=== PATIENT | male | born 1975 | race Caucasian/White ===

== ENCOUNTER 2018-08-29 10:43 | Emergency (ER) | payer MEDICAID, OTHER, SELFPAY ==
[~2018-08-29] VITALS: Ht 182.9 cm; Wt 69.2 kg
[2018-08-29 10:44] VITALS: BP 152/88
[2018-08-29 11:56] LABS: BASOPHILS # (AUTO) 0.01 x10^3/uL (0-0.1); BASOPHILS % (AUTO) 0 % (0-1); EOSINOPHILS # (AUTO) 0.02 x10^3/uL (0-0.4); EOSINOPHILS % (AUTO) 0 % (1-7); LYMPHOCYTES # (AUTO) 0.37 x10^3/uL (1-3.4); LYMPHOCYTES % (AUTO) 5 % (22-44); MD NO; MEAN CORPUSCULAR HGB CONC 33.3 g/dL (33.2-36.2); MEAN CORPUSCULAR VOLUME 86.9 fL (81-97); MEAN PLATELET VOLUME 8.9 fL (7.4-10.4); MONOCYTES # (AUTO) 0.32 x10^3/uL (0.2-0.8); MONOCYTES % (AUTO) 4 % (2-9); NEUTROPHILS # (AUTO) 7.43 x10^3/uL (1.8-6.8); NEUTROPHILS % (AUTO) 91 % (42-75); PLATELET COUNT 313 x10^3/uL (130-400); RED BLOOD COUNT 5.33 x10^6/uL (4.38-5.82); RED CELL DISTRIBUTION WIDTH 16.4 % (9.4-14.8)
[2018-08-29 12:03] LABS: ALBUMIN 4.2 g/dL (3.4-5.0); ANION GAP 5 mmol/L (5-15); CHLORIDE 107 mmol/L (98-107)
[2018-08-29 12:07] LABS: ALANINE AMINOTRANSFERASE 31 U/L (12-78); ALKALINE PHOSPHATASE 76 U/L (45-117); BILIRUBIN,TOTAL 0.3 mg/dL (0.2-1.0); CREATININE 0.86 mg/dL (0.7-1.3); TOTAL PROTEIN 7.9 g/dL (6.4-8.2)
--- NOTE | 2018-08-29 12:47 | NUR ---
TO ROOM 27
[2018-08-29] MEDS ORDERED: ONDANSETRON ODT 4 MG PO ONE (13:30)
[2018-08-29 13:46] LABS: MICROSCOPIC AUTO
[2018-08-29 13:55] LABS: CULTURE INDICATED? NO
[2018-08-29] MEDS ORDERED: ONDANSETRON ODT 4 MG ONE (14:02)
== END 2018-08-29 14:08 | disposition home or self-care (01) ==
LOC: ED 13:19
DX: K52.9 Noninfective gastroenteritis and colitis, unspecified (principal); K50.90 Crohn's disease, unspecified, without complications; R05 Cough
CPT/HCPCS: 36415; 80053; 81001; 83690; 85025; 99283; Q0162

== ENCOUNTER 2018-09-19 23:00 | Emergency (ER) | payer SELFPAY ==
[~2018-09-19] VITALS: Ht 182.9 cm; Wt 68.0 kg
[2018-09-19 23:04] VITALS: BP 180/90
[2018-09-19] MEDS ORDERED: OXYcodone/APAP 5/325MG TABLET ONE (23:58)
[2018-09-20] MEDS ORDERED: OXYcodone/APAP 5/325MG TABLET PO ONE (00:30)
== END 2018-09-20 00:37 | disposition home or self-care (01) ==
LOC: ED 23:59
DX: S42.431A Displaced fracture (avulsion) of lateral epicondyle of right humerus, initial encounter for closed fracture (principal); F17.210 Nicotine dependence, cigarettes, uncomplicated; W22.03XA Walked into furniture, initial encounter; Y93.89 Activity, other specified; Y92.098 Other place in other non-institutional residence as the place of occurrence of the external cause; Y99.8 Other external cause status
CPT/HCPCS: 29105; 99283

== ENCOUNTER 2019-09-09 09:23 | Emergency (ER) | payer SELFPAY ==
[~2019-09-09] VITALS: Ht 182.9 cm; Wt 77.8 kg
[2019-09-09 09:59] VITALS: BP 139/108
== END 2019-09-09 14:31 | disposition left against medical advice (07) ==
LOC: ED 14:20
DX: R51 Headache (principal); R11.10 Vomiting, unspecified
CPT/HCPCS: 99281

== ENCOUNTER 2019-12-12 14:31 | Emergency (ER) | payer MEDICAID ==
[~2019-12-12] VITALS: Ht 182.9 cm; Wt 76.4 kg
[2019-12-12] MEDS ORDERED: SODIUM CHLORIDE FLUSH 10ML SYR IVF ONE (15:30)
[2019-12-12 16:06] LABS: BASOPHILS # (AUTO) 0.01 x10^3/uL (0-0.1); BASOPHILS % (AUTO) 0 % (0-1); EOSINOPHILS # (AUTO) 0.04 x10^3/uL (0-0.4); EOSINOPHILS % (AUTO) 1 % (1-7); LYMPHOCYTES # (AUTO) 1.24 x10^3/uL (1-3.4); LYMPHOCYTES % (AUTO) 18 % (22-44); MD NO; MEAN CORPUSCULAR HEMOGLOBIN 28.2 pg (27.5-34.5); MEAN CORPUSCULAR HGB CONC 32.5 g/dL (33.2-36.2); MEAN CORPUSCULAR VOLUME 86.9 fL (81-97); MEAN PLATELET VOLUME 9.3 fL (7.4-10.4); MONOCYTES # (AUTO) 0.23 x10^3/uL (0.2-0.8); MONOCYTES % (AUTO) 3 % (2-9); NEUTROPHILS # (AUTO) 5.46 x10^3/uL (1.8-6.8); NEUTROPHILS % (AUTO) 78 % (42-75); PLATELET COUNT 237 x10^3/uL (130-400); RED BLOOD COUNT 5.12 x10^6/uL (4.38-5.82); RED CELL DISTRIBUTION WIDTH 15.9 % (9.4-14.8)
[2019-12-12 16:13] LABS: ALANINE AMINOTRANSFERASE 47 U/L (12-78); ALBUMIN 3.8 g/dL (3.4-5.0); ANION GAP 7 mmol/L (5-15); CALCIUM 8.9 mg/dL (8.5-10.1); CHLORIDE 109 mmol/L (98-107); CREATININE 0.83 mg/dL (0.7-1.3)
[2019-12-12 16:16] LABS: ALKALINE PHOSPHATASE 64 U/L (45-117); BILIRUBIN,TOTAL 0.2 mg/dL (0.2-1.0); TOTAL PROTEIN 7.6 g/dL (6.4-8.2)
[2019-12-12 16:35] VITALS: BP 129/88
--- NOTE | 2019-12-12 16:38 | NUR ---
re-vital'd - vss reports flank pain worsening-lab intern made aware
--- NOTE | 2019-12-12 16:52 | NUR ---
NOT IN LOBBY. LOBBY SCREENER REPORTS PATIENT RECENTLY RAN INTO THE PARKING LOT TO DEAL WITH A SOCIAL SITUATION
--- NOTE | 2019-12-12 17:20 | NUR ---
NO ANSWER FROM LOBBY
== END 2019-12-12 17:22 | disposition left against medical advice (07) ==
LOC: ED 17:11
DX: R10.9 Unspecified abdominal pain (principal); R31.9 Hematuria, unspecified
CPT/HCPCS: 36415; 74176; 80053; 85025; 99284

== ENCOUNTER 2020-01-13 09:29 | Emergency (ER) | payer MEDICAID ==
[~2020-01-13] VITALS: Ht 180.3 cm; Wt 79.2 kg
--- NOTE | 2020-01-13 09:59 | NUR ---
TOWEL SORTER: PT WALKED BACK FROM LOBBY TO ROOM AT THIS TIME. NO ACUTE DISTRESS NOTED.
--- NOTE | 2020-01-13 10:02 | NUR ---
TASK RN: PT AMBULATORY TO ROOM FROM [facility]. PT STATES HE SPRAINED HIS LEFT WRIST YESTERDAY LIFTING [employer]. NOT GOING TO WORK TODAY AND NEEDS WORK NOTE AND WANTS A BRACE FOR HIS WRIST. DISTAL CSM+, PAIN WITH WRIST ROTATION
[2020-01-13 10:05] VITALS: BP 144/102
--- NOTE | 2020-01-13 10:05 | NUR ---
CALL LIGHT W/I REACH
[2020-01-13] MEDS ORDERED: IBUPROFEN 600 MG TABLET PO ONE (10:30)
== END 2020-01-13 11:39 | disposition home or self-care (01) ==
LOC: ED 11:24
DX: G89.11 Acute pain due to trauma (principal); M25.532 Pain in left wrist; M77.9 Enthesopathy, unspecified
CPT/HCPCS: 29125; 99283

== ENCOUNTER 2020-01-23 09:27 | Emergency (ER) | payer MEDICAID ==
[~2020-01-23] VITALS: Ht 182.9 cm; Wt 76.0 kg
[2020-01-23 09:32] VITALS: BP 191/88
--- NOTE | 2020-01-23 10:16 | NUR ---
CONTROL SYSTEMS ENGINEER: PT TO ROOM FROM LOBBY
[2020-01-23] MEDS ORDERED: ONDANSETRON ODT 4 MG PO ONE (10:30)
[2020-01-23] MEDS ORDERED: ONDANSETRON ODT 4 MG ONE (10:41)
[2020-01-23 11:06] LABS: BASOPHILS % (AUTO) 0 % (0-1); EOSINOPHILS % (AUTO) 0 % (1-7); LYMPHOCYTES # (AUTO) 1.19 x10^3/uL (1-3.4); LYMPHOCYTES % (AUTO) 13 % (22-44); MD NO; MEAN CORPUSCULAR HEMOGLOBIN 27.9 pg (27.5-34.5); MEAN CORPUSCULAR HGB CONC 33.2 g/dL (33.2-36.2); MEAN CORPUSCULAR VOLUME 84.1 fL (81-97); MEAN PLATELET VOLUME 8.1 fL (7.4-10.4); MONOCYTES # (AUTO) 0.78 x10^3/uL (0.2-0.8); MONOCYTES % (AUTO) 9 % (2-9); NEUTROPHILS # (AUTO) 6.95 x10^3/uL (1.8-6.8); NEUTROPHILS % (AUTO) 78 % (42-75); PLATELET COUNT 306 x10^3/uL (130-400); RED CELL DISTRIBUTION WIDTH 16.8 % (9.4-14.8)
[2020-01-23 11:19] LABS: CHLORIDE 109 mmol/L (98-107)
[2020-01-23 11:35] LABS: ALANINE AMINOTRANSFERASE 143 U/L (12-78); ALBUMIN 4.6 g/dL (3.4-5.0); ALKALINE PHOSPHATASE 59 U/L (45-117); ANION GAP 9 mmol/L (5-15); CALCIUM 9.3 mg/dL (8.5-10.1); CREATININE 0.86 mg/dL (0.7-1.3); TOTAL PROTEIN 8.1 g/dL (6.4-8.2)
== END 2020-01-23 12:13 | disposition home or self-care (01) ==
LOC: ED 11:29
DX: R06.00 Dyspnea, unspecified (principal); Z20.828 Contact with and (suspected) exposure to other viral communicable diseases; R06.02 Shortness of breath; R11.2 Nausea with vomiting, unspecified; M79.10 Myalgia, unspecified site; R73.09 Other abnormal glucose; Z87.891 Personal history of nicotine dependence
CPT/HCPCS: 36415; 71045; 80053; 80074; 85025; 87521; 87635; 93005; 99285; Q0162

== ENCOUNTER 2020-01-30 09:01 | Emergency (ER) | payer MEDICAID ==
[~2020-01-30] VITALS: Ht 177.8 cm; Wt 80.0 kg
[2020-01-30 09:09] VITALS: BP 160/100
--- NOTE | 2020-01-30 11:04 | NUR ---
Patient/Caregiver given discharge instructions and they have confirmed that they understand the instructions. Patient ambulatory with steady gait.
== END 2020-01-30 11:06 | disposition home or self-care (01) ==
LOC: ED 09:27
DX: F15.10 Other stimulant abuse, uncomplicated (principal); F22 Delusional disorders
CPT/HCPCS: 99283

== ENCOUNTER 2020-03-13 02:21 | Inpatient (IN) | payer MEDICAID ==
[~2020-03-13] VITALS: Ht 182.9 cm; Wt 71.0 kg
[2020-03-13] MEDS ORDERED: CEFTRIAXONE PMX 1GM/50ML 50 ML ONE (02:48)
[2020-03-13] MEDS ORDERED: VANCOMYCIN PER PHARMACY MC ONE (03:00)
[2020-03-13] MEDS ORDERED: CEFTRIAXONE PMX 1GM/50ML 50 ML IVPB ONE (03:00)
[2020-03-13] MEDS ORDERED: MORPHINE SULFATE 4 MG/ML, 1ML ONE (03:11)
[2020-03-13] MEDS ORDERED: ONDANSETRON 2MG/ML, 2ML ONE (03:11)
[2020-03-13] MEDS: MORPHINE SULFATE 4 MG/ML, 1ML IVPush PRN ×2 (03:15→04:34)
[2020-03-13 03:24] LABS: BASOPHILS # (AUTO) 0.01 x10^3/uL (0-0.1); BASOPHILS % (AUTO) 0 % (0-1); EOSINOPHILS # (AUTO) 0.03 x10^3/uL (0-0.4); EOSINOPHILS % (AUTO) 0 % (1-7); LYMPHOCYTES # (AUTO) 1.02 x10^3/uL (1-3.4); LYMPHOCYTES % (AUTO) 7 % (22-44); MD NO; MEAN CORPUSCULAR HEMOGLOBIN 28.5 pg (27.5-34.5); MEAN CORPUSCULAR HGB CONC 32.6 g/dL (33.2-36.2); MEAN CORPUSCULAR VOLUME 87.4 fL (81-97); MEAN PLATELET VOLUME 8.1 fL (7.4-10.4); MONOCYTES # (AUTO) 0.62 x10^3/uL (0.2-0.8); MONOCYTES % (AUTO) 5 % (2-9); NEUTROPHILS # (AUTO) 12.04 x10^3/uL (1.8-6.8); NEUTROPHILS % (AUTO) 88 % (42-75); PLATELET COUNT 342 x10^3/uL (130-400); RED CELL DISTRIBUTION WIDTH 16.9 % (9.4-14.8)
[2020-03-13 03:30] LABS: ALANINE AMINOTRANSFERASE 52 U/L (12-78); ALBUMIN 3.1 g/dL (3.4-5.0); ANION GAP 4 mmol/L (5-15); CHLORIDE 105 mmol/L (98-107); CREATININE 0.66 mg/dL (0.7-1.3)
[2020-03-13] MEDS ORDERED: VANCOMYCIN 1,600 MG in SODIUM CHLORIDE 0.9% 250 ML IV ONE (03:30)
[2020-03-13] MEDS ORDERED: ONDANSETRON 2MG/ML, 2ML IVPush ONE (03:30)
[2020-03-13 03:32] LABS: ALKALINE PHOSPHATASE 76 U/L (45-117); BILIRUBIN,TOTAL 0.4 mg/dL (0.2-1.0); TOTAL PROTEIN 6.7 g/dL (6.4-8.2)
--- NOTE | 2020-03-13 03:45 | NUR ---
PT YELLING OUT, UPON ENTERING ROOM PT YELLING THAT HE "HAS PRESSURE IN HIS STOMACH", PT RIPS OFF MONITORS AND STATES "I HAVE TO STAND UP", PT ASSISTED TO RESTROOM, PT STATES "I NEED TO SIT ON THE TOILET". PT IN RESTROOM CONTINUING TO YELL OUT. DR LUNA MADE AWARE
[2020-03-13] MEDS ORDERED: SODIUM CHLORIDE 0.9% 1,000 ML IV SCH (03:57)
[2020-03-13] MEDS ORDERED: hydrALAzine 20 MG/ML, 1ML IVPush PRN (04:00)
[2020-03-13] MEDS ORDERED: ZIPRASIDONE 20 MG INJ IM ONE ×2 (04:00→04:01)
[2020-03-13] MEDS ORDERED: ONDANSETRON 2MG/ML, 2ML IVPush PRN ×2 (04:00)
[2020-03-13] MEDS ORDERED: DOCUSATE 100 MG CAPSULE PO PRN (04:00)
[2020-03-13] MEDS ORDERED: KETOROLAC 30 MG/1 ML IVPush ONE (04:00)
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
[2020-03-13] MEDS: HEPARIN 5,000 UNITS/ML, 1ML SQ SCH ×3 (04:22→22:23)
--- NOTE | 2020-03-13 04:30 | NUR ---
Pt now asleep following medication administration, vss, will continue to monitor
[2020-03-13] MEDS ORDERED: KETOROLAC 30 MG/1 ML ONE (04:38)
[2020-03-13] MEDS: AMPICILLIN/SULBACTAM 3 GM in SODIUM CHLORIDE 0.9% 100 ML IV SCH ×3 (05:30→20:17)
--- NOTE | 2020-03-13 06:38 | NUR ---
Pt asleep, appears comfortable resting in [facility] at this time, srinivas, lety
--- NOTE | 2020-03-13 06:51 | NUR ---
TOOK REPORT FROM CHAS PEDROZA RN, [facility] AT THIS TIME. PT CALM SLEEPING IN BED , RR EVEN AND UNLABORED. MATTIE SITTER OUTSIDE ROOM. ROOM IS SAFE AND SECURE.
[2020-03-13] MEDS ORDERED: DOXYCYCLINE 100MG TABLET ONE (08:22)
--- NOTE | 2020-03-13 08:50 | NUR ---
Note undone in EDM - 03/13/20 at 0851 by VICTORINA PT COMPLAINING OF STOMACH DISCOMOFRT AND NAUSEA. MEDICATED PER AUG.
[2020-03-13] MEDS: DOXYCYCLINE 100MG TABLET PO SCH ×2 (09:21→22:22)
--- NOTE | 2020-03-13 09:33 | NUR ---
urine sent to lab
[2020-03-13 10:09] LABS: AMPHETAMINE SCREEN, URINE Positive (Negative); BARBITURATE SCREEN, URINE Negative (Negative); BENZODIAZEPINE SCREEN, URINE Negative (Negative); CANNABINOID SCREEN, URINE Positive (Negative); COCAINE SCREEN, URINE Negative (Negative); METHADONE SCREEN, URINE Negative (Negative); OPIATE SCREEN, URINE Positive (Negative)
[2020-03-13 14:45] VITALS: BP 151/95
[2020-03-13] MEDS ORDERED: MORPHINE SULFATE 4 MG/ML, 1ML IVPush PRN (17:00)
[2020-03-13 19:09] VITALS: BP 135/92
[2020-03-14 00:49] VITALS: BP 154/104
[2020-03-14] MEDS: AMPICILLIN/SULBACTAM 3 GM in SODIUM CHLORIDE 0.9% 100 ML IV SCH ×4 (02:08→21:19)
[2020-03-14] MEDS: HEPARIN 5,000 UNITS/ML, 1ML SQ SCH ×3 (04:50→22:36)
[2020-03-14 06:04] LABS: ANION GAP 6 mmol/L (5-15); CALCIUM 8.8 mg/dL (8.5-10.1); CHLORIDE 107 mmol/L (98-107); CREATININE 0.62 mg/dL (0.7-1.3); HCT (SEDRATE) 41.1 % (39.2-51.8)
[2020-03-14 06:14] LABS: BASOPHILS # (AUTO) 0.04 x10^3/uL (0-0.1); BASOPHILS % (AUTO) 0 % (0-1); EOSINOPHILS # (AUTO) 0.04 x10^3/uL (0-0.4); EOSINOPHILS % (AUTO) 1 % (1-7); LYMPHOCYTES # (AUTO) 1.05 x10^3/uL (1-3.4); LYMPHOCYTES % (AUTO) 12 % (22-44); MD NO; MEAN CORPUSCULAR HEMOGLOBIN 28.5 pg (27.5-34.5); MEAN CORPUSCULAR HGB CONC 32.3 g/dL (33.2-36.2); MEAN CORPUSCULAR VOLUME 88.2 fL (81-97); MEAN PLATELET VOLUME 7.8 fL (7.4-10.4); MONOCYTES # (AUTO) 0.78 x10^3/uL (0.2-0.8); MONOCYTES % (AUTO) 9 % (2-9); NEUTROPHILS # (AUTO) 7.06 x10^3/uL (1.8-6.8); NEUTROPHILS % (AUTO) 79 % (42-75); PLATELET COUNT 315 x10^3/uL (130-400); RED BLOOD COUNT 4.65 x10^6/uL (4.38-5.82); RED CELL DISTRIBUTION WIDTH 17.3 % (9.4-14.8)
[2020-03-14] MEDS: DOXYCYCLINE 100MG TABLET PO SCH ×2 (08:17→21:18)
[2020-03-14] MEDS: NICOTINE 14MG/24 HR PATCH.TD24 TD SCH (08:17)
[2020-03-14 08:27] VITALS: BP 137/92
[2020-03-14 12:32] VITALS: BP 142/89
[2020-03-14] MEDS ORDERED: VANCOMYCIN PER PHARMACY MC PRN (13:00)
[2020-03-14] MEDS ORDERED: PHARMACOKINETIC MONITORING MC PRN (13:30)
[2020-03-14] MEDS ORDERED: PHARMACOKINETIC CONSULTATION MC ONE (13:30)
[2020-03-14] MEDS: OXYcodone IR 5MG TABLET PO PRN ×2 (15:33→21:18)
[2020-03-14] MEDS: VANCOMYCIN 1,300 MG in SODIUM CHLORIDE 0.9% 250 ML IV SCH (16:51)
[2020-03-14 20:34] VITALS: BP 147/92
[2020-03-15 00:53] VITALS: BP 131/80
[2020-03-15] MEDS: AMPICILLIN/SULBACTAM 3 GM in SODIUM CHLORIDE 0.9% 100 ML IV SCH ×4 (03:37→21:45)
[2020-03-15] MEDS: OXYcodone IR 5MG TABLET PO PRN ×5 (04:56→22:40)
[2020-03-15] MEDS: VANCOMYCIN 1,300 MG in SODIUM CHLORIDE 0.9% 250 ML IV SCH (04:56)
[2020-03-15] MEDS: HEPARIN 5,000 UNITS/ML, 1ML SQ SCH ×3 (06:14→21:45)
[2020-03-15 06:37] LABS: BASOPHILS # (AUTO) 0.04 x10^3/uL (0-0.1); BASOPHILS % (AUTO) 1 % (0-1); EOSINOPHILS # (AUTO) 0.11 x10^3/uL (0-0.4); EOSINOPHILS % (AUTO) 1 % (1-7); LYMPHOCYTES # (AUTO) 1.13 x10^3/uL (1-3.4); LYMPHOCYTES % (AUTO) 15 % (22-44); MD NO; MEAN CORPUSCULAR HEMOGLOBIN 28.4 pg (27.5-34.5); MEAN CORPUSCULAR HGB CONC 32.1 g/dL (33.2-36.2); MEAN CORPUSCULAR VOLUME 88.4 fL (81-97); MEAN PLATELET VOLUME 7.6 fL (7.4-10.4); MONOCYTES # (AUTO) 0.78 x10^3/uL (0.2-0.8); MONOCYTES % (AUTO) 10 % (2-9); NEUTROPHILS # (AUTO) 5.41 x10^3/uL (1.8-6.8); NEUTROPHILS % (AUTO) 73 % (42-75); PLATELET COUNT 366 x10^3/uL (130-400); RED BLOOD COUNT 4.95 x10^6/uL (4.38-5.82); RED CELL DISTRIBUTION WIDTH 17.3 % (9.4-14.8)
[2020-03-15 07:08] VITALS: BP 133/80
[2020-03-15] MEDS: NICOTINE 14MG/24 HR PATCH.TD24 TD SCH (07:08)
[2020-03-15] MEDS: DOXYCYCLINE 100MG TABLET PO SCH (08:16)
[2020-03-15 14:58] VITALS: BP 155/75
[2020-03-15 19:43] VITALS: BP 144/90
[2020-03-16 03:14] VITALS: BP 135/78
[2020-03-16] MEDS: OXYcodone IR 5MG TABLET PO PRN ×5 (03:14→20:09)
[2020-03-16] MEDS: AMPICILLIN/SULBACTAM 3 GM in SODIUM CHLORIDE 0.9% 100 ML IV SCH ×4 (03:14→21:36)
[2020-03-16] MEDS: HEPARIN 5,000 UNITS/ML, 1ML SQ SCH ×2 (06:30→15:50)
[2020-03-16] MEDS: NICOTINE 14MG/24 HR PATCH.TD24 TD SCH (07:21)
[2020-03-16 07:26] VITALS: BP 155/94
[2020-03-16 13:03] VITALS: BP 145/93
[2020-03-16 19:25] VITALS: BP 142/91
[2020-03-16] MEDS: ACETAMINOPHEN 325 MG TABLET PO PRN (20:08)
[2020-03-17] MEDS: ACETAMINOPHEN 325 MG TABLET PO PRN ×2 (00:02→04:06)
[2020-03-17] MEDS: OXYcodone IR 5MG TABLET PO PRN ×3 (00:04→09:07)
[2020-03-17] MEDS: HEPARIN 5,000 UNITS/ML, 1ML SQ SCH ×4 (00:05→22:49)
[2020-03-17 01:26] VITALS: BP 136/89
[2020-03-17] MEDS: AMPICILLIN/SULBACTAM 3 GM in SODIUM CHLORIDE 0.9% 100 ML IV SCH ×4 (04:06→22:46)
[2020-03-17 05:53] LABS: BASOPHILS # (AUTO) 0.02 x10^3/uL (0-0.1); BASOPHILS % (AUTO) 0 % (0-1); EOSINOPHILS # (AUTO) 0.15 x10^3/uL (0-0.4); EOSINOPHILS % (AUTO) 3 % (1-7); LYMPHOCYTES # (AUTO) 1.41 x10^3/uL (1-3.4); LYMPHOCYTES % (AUTO) 29 % (22-44); MD NO; MEAN CORPUSCULAR HEMOGLOBIN 28.6 pg (27.5-34.5); MEAN CORPUSCULAR HGB CONC 32.3 g/dL (33.2-36.2); MEAN CORPUSCULAR VOLUME 88.7 fL (81-97); MEAN PLATELET VOLUME 7.5 fL (7.4-10.4); MONOCYTES # (AUTO) 0.62 x10^3/uL (0.2-0.8); MONOCYTES % (AUTO) 13 % (2-9); NEUTROPHILS # (AUTO) 2.64 x10^3/uL (1.8-6.8); NEUTROPHILS % (AUTO) 55 % (42-75); PLATELET COUNT 425 x10^3/uL (130-400); RED BLOOD COUNT 4.61 x10^6/uL (4.38-5.82); RED CELL DISTRIBUTION WIDTH 17.7 % (9.4-14.8)
[2020-03-17 05:56] LABS: ANION GAP 5 mmol/L (5-15); CALCIUM 8.8 mg/dL (8.5-10.1); CHLORIDE 104 mmol/L (98-107); CREATININE 0.74 mg/dL (0.7-1.3)
[2020-03-17 07:01] VITALS: BP 116/59
[2020-03-17 08:19] VITALS: BP 173/102
[2020-03-17] MEDS: NICOTINE 14MG/24 HR PATCH.TD24 TD SCH (08:33)
[2020-03-17 12:55] VITALS: BP 169/98
[2020-03-17] MEDS ORDERED: IBUPROFEN 600 MG TABLET ONE (17:05)
[2020-03-17 20:03] VITALS: BP 153/101
[2020-03-18 01:44] VITALS: BP 144/103
[2020-03-18] MEDS: IBUPROFEN 600 MG TABLET PO PRN ×3 (02:14→15:47)
[2020-03-18] MEDS: AMPICILLIN/SULBACTAM 3 GM in SODIUM CHLORIDE 0.9% 100 ML IV SCH ×4 (04:27→21:20)
[2020-03-18] MEDS: ACETAMINOPHEN 325 MG TABLET PO PRN ×3 (05:22→19:09)
[2020-03-18] MEDS: OXYcodone IR 5MG TABLET PO PRN ×3 (05:23→19:09)
[2020-03-18 06:52] VITALS: BP 163/88
[2020-03-18] MEDS: HEPARIN 5,000 UNITS/ML, 1ML SQ SCH ×3 (08:37→23:30)
[2020-03-18 08:38] LABS: BASOPHILS # (AUTO) 0.02 x10^3/uL (0-0.1); BASOPHILS % (AUTO) 0 % (0-1); EOSINOPHILS # (AUTO) 0.05 x10^3/uL (0-0.4); EOSINOPHILS % (AUTO) 1 % (1-7); LYMPHOCYTES # (AUTO) 1.06 x10^3/uL (1-3.4); LYMPHOCYTES % (AUTO) 21 % (22-44); MD NO; MEAN CORPUSCULAR HEMOGLOBIN 28.2 pg (27.5-34.5); MEAN CORPUSCULAR HGB CONC 31.8 g/dL (33.2-36.2); MEAN CORPUSCULAR VOLUME 88.9 fL (81-97); MEAN PLATELET VOLUME 7.6 fL (7.4-10.4); MONOCYTES # (AUTO) 0.37 x10^3/uL (0.2-0.8); MONOCYTES % (AUTO) 7 % (2-9); NEUTROPHILS # (AUTO) 3.46 x10^3/uL (1.8-6.8); NEUTROPHILS % (AUTO) 70 % (42-75); PLATELET COUNT 389 x10^3/uL (130-400); RED BLOOD COUNT 5.27 x10^6/uL (4.38-5.82); RED CELL DISTRIBUTION WIDTH 17.7 % (9.4-14.8)
[2020-03-18 08:46] LABS: ANION GAP 6 mmol/L (5-15); CALCIUM 8.7 mg/dL (8.5-10.1); CHLORIDE 105 mmol/L (98-107)
[2020-03-18 08:51] LABS: ALANINE AMINOTRANSFERASE 79 U/L (12-78); ALKALINE PHOSPHATASE 115 U/L (45-117); BILIRUBIN,TOTAL 0.2 mg/dL (0.2-1.0); TOTAL PROTEIN 7.4 g/dL (6.4-8.2)
[2020-03-18] MEDS: NICOTINE 14MG/24 HR PATCH.TD24 TD SCH (09:14)
[2020-03-18 14:02] VITALS: BP 153/73
[2020-03-18 20:11] VITALS: BP 169/87
[2020-03-19] MEDS: OXYcodone IR 5MG TABLET PO PRN ×4 (00:33→20:53)
[2020-03-19 02:17] VITALS: BP 162/98
[2020-03-19] MEDS: AMPICILLIN/SULBACTAM 3 GM in SODIUM CHLORIDE 0.9% 100 ML IV SCH ×4 (03:30→22:51)
[2020-03-19 07:33] VITALS: BP 171/101
[2020-03-19] MEDS: ACETAMINOPHEN 325 MG TABLET PO PRN ×3 (08:14→20:53)
[2020-03-19] MEDS: HEPARIN 5,000 UNITS/ML, 1ML SQ SCH ×2 (08:15→17:15)
[2020-03-19] MEDS: NICOTINE 14MG/24 HR PATCH.TD24 TD SCH (09:00)
[2020-03-19] MEDS: IBUPROFEN 600 MG TABLET PO PRN ×2 (09:42→17:15)
[2020-03-19 13:31] VITALS: BP 147/95
[2020-03-19 18:30] VITALS: BP 156/85
[2020-03-20] MEDS: HEPARIN 5,000 UNITS/ML, 1ML SQ SCH ×2 (01:00→09:34)
[2020-03-20 02:46] VITALS: BP 143/86
[2020-03-20] MEDS: OXYcodone IR 5MG TABLET PO PRN ×2 (03:50→09:33)
[2020-03-20] MEDS: ACETAMINOPHEN 325 MG TABLET PO PRN ×2 (03:50→09:34)
[2020-03-20] MEDS: AMPICILLIN/SULBACTAM 3 GM in SODIUM CHLORIDE 0.9% 100 ML IV SCH ×2 (05:16→11:08)
[2020-03-20] MEDS: IBUPROFEN 600 MG TABLET PO PRN (05:22)
[2020-03-20 07:31] VITALS: BP 158/97
[2020-03-20] MEDS: NICOTINE 14MG/24 HR PATCH.TD24 TD SCH (09:35)
[2020-03-20] MEDS ORDERED: AMOX1TAB12 PO (09:36)
[2020-03-20 12:44] VITALS: BP 159/99
== END 2020-03-20 13:20 | disposition home or self-care (01) | DRG 603 ==
LOC: ED 02:43 → EDIP 04:01 → 4NE 09:45 → DCLOUNGE 03-20 13:10
PROVIDERS: ADMIT Family Medicine; ATTEND Internal Medicine
DX: L03.113 Cellulitis of right upper limb (principal); K50.90 Crohn's disease, unspecified, without complications; F12.90 Cannabis use, unspecified, uncomplicated; F17.210 Nicotine dependence, cigarettes, uncomplicated; G89.11 Acute pain due to trauma; I10 Essential (primary) hypertension; S67.21XA Crushing injury of right hand, initial encounter; W23.0XXA Caught, crushed, jammed, or pinched between moving objects, initial encounter; B95.0 Streptococcus, group A, as the cause of diseases classified elsewhere; M65.841 Other synovitis and tenosynovitis, right hand; Z20.828 Contact with and (suspected) exposure to other viral communicable diseases; Y93.55 Activity, bike riding; Z59.0 Homelessness; Z90.49 Acquired absence of other specified parts of digestive tract; Z91.19 Patient's noncompliance with other medical treatment and regimen; Z95.2 Presence of prosthetic heart valve; Z79.899 Other long term (current) drug therapy; Y92.89 Other specified places as the place of occurrence of the external cause; Y99.8 Other external cause status
CPT/HCPCS: 36415; 80048; 80053; 80307; 85025; 85651; 86140; 87040; 87070; 87077; 87147; 87186; 87205; 87635; 96374; 96375; 99285; G0378; J0295; J0696; J1644; J1885; J2405; J3370; J3486; J2270; J7030; J7050

== ENCOUNTER 2020-03-22 01:45 | Emergency (ER) | payer MEDICAID ==
[~2020-03-22] VITALS: Ht 182.9 cm; Wt 66.5 kg
[~2020-03-22 01:45] MED LIST: AMOX1TAB12 PO
[2020-03-22] MEDS ORDERED: ONDANSETRON ODT 4 MG ONE (02:05)
[2020-03-22] MEDS ORDERED: KETOROLAC 60 MG/2 ML ONE (02:06)
[2020-03-22] MEDS ORDERED: HYDROcodone/APAP 5/325 TABLET ONE (02:06)
--- NOTE | 2020-03-22 02:24 | NUR ---
pt to room with c/o flank pain
[2020-03-22 02:29] LABS: BASOPHILS % (AUTO) 0 % (0-1); EOSINOPHILS # (AUTO) 0.06 x10^3/uL (0-0.4); EOSINOPHILS % (AUTO) 1 % (1-7); LYMPHOCYTES # (AUTO) 1.48 x10^3/uL (1-3.4); LYMPHOCYTES % (AUTO) 27 % (22-44); MD NO; MEAN CORPUSCULAR HEMOGLOBIN 28.3 pg (27.5-34.5); MEAN CORPUSCULAR HGB CONC 32.2 g/dL (33.2-36.2); MEAN CORPUSCULAR VOLUME 87.7 fL (81-97); MONOCYTES # (AUTO) 0.84 x10^3/uL (0.2-0.8); MONOCYTES % (AUTO) 15 % (2-9); NEUTROPHILS # (AUTO) 3.15 x10^3/uL (1.8-6.8); NEUTROPHILS % (AUTO) 57 % (42-75); PLATELET COUNT 454 x10^3/uL (130-400); RED BLOOD COUNT 4.63 x10^6/uL (4.38-5.82); RED CELL DISTRIBUTION WIDTH 18.3 % (9.4-14.8)
[2020-03-22 02:30] LABS: MICROSCOPIC INDICATED
[2020-03-22] MEDS ORDERED: ONDANSETRON ODT 4 MG PO ONE (02:30)
[2020-03-22] MEDS ORDERED: KETOROLAC 60 MG/2 ML IM ONE (02:30)
[2020-03-22] MEDS ORDERED: HYDROcodone/APAP 5/325 TABLET PO ONE (02:30)
[2020-03-22 02:39] LABS: ALANINE AMINOTRANSFERASE 118 U/L (12-78); ALBUMIN 3.4 g/dL (3.4-5.0); ANION GAP 6 mmol/L (5-15); CALCIUM 9.1 mg/dL (8.5-10.1); CHLORIDE 107 mmol/L (98-107); CREATININE 0.77 mg/dL (0.7-1.3)
[2020-03-22 02:42] LABS: ALKALINE PHOSPHATASE 93 U/L (45-117); BILIRUBIN,TOTAL 0.2 mg/dL (0.2-1.0); TOTAL PROTEIN 7.3 g/dL (6.4-8.2)
--- NOTE | 2020-03-22 02:57 | NUR ---
pt sleeping in nad
[2020-03-22 03:04] VITALS: BP 140/96
--- NOTE | 2020-03-22 03:23 | NUR ---
Patient/Caregiver given discharge instructions and they have confirmed that they understand the instructions. Patient ambulatory with steady gait.
== END 2020-03-22 03:25 | disposition home or self-care (01) ==
LOC: ED 02:30
DX: N20.2 Calculus of kidney with calculus of ureter (principal); R10.9 Unspecified abdominal pain; F17.210 Nicotine dependence, cigarettes, uncomplicated; Z90.49 Acquired absence of other specified parts of digestive tract
CPT/HCPCS: 36415; 74176; 80053; 81001; 83690; 85025; 96372; 99284; 99406; J1885; Q0162

== ENCOUNTER 2020-07-27 06:22 | Emergency (ER) | payer MEDICAID ==
[~2020-07-27] VITALS: Ht 182.9 cm; Wt 78.0 kg
[2020-07-27] MEDS ORDERED: LORazepam 2 MG/ML, 1ML IV ONE (06:30)
[2020-07-27] MEDS ORDERED: SODIUM CHLORIDE FLUSH 10ML SYR IVF ONE (06:30)
[2020-07-27] MEDS ORDERED: LISINOPRIL 20 MG TABLET PO ONE (06:30)
[2020-07-27 06:59] LABS: BASOPHILS % (AUTO) 1 % (0-1); EOSINOPHILS % (AUTO) 0 % (1-7); LYMPHOCYTES % (AUTO) 19 % (22-44); MEAN CORPUSCULAR HEMOGLOBIN 29.8 pg (27.5-34.5); MEAN CORPUSCULAR HGB CONC 34.1 g/dL (33.2-36.2); MEAN PLATELET VOLUME 7.7 fL (7.4-10.4); MONOCYTES % (AUTO) 8 % (2-9); NEUTROPHILS % (AUTO) 72 % (42-75); PLATELET COUNT 281 x10^3/uL (130-400); RED BLOOD COUNT 4.77 x10^6/uL (4.38-5.82); RED CELL DISTRIBUTION WIDTH 15.2 % (9.4-14.8)
[2020-07-27 07:01] LABS: MD NO
[2020-07-27 07:11] LABS: ALANINE AMINOTRANSFERASE 125 U/L (12-78); ALBUMIN 3.6 g/dL (3.4-5.0); ANION GAP 5 mmol/L (5-15); CALCIUM 8.5 mg/dL (8.5-10.1); CHLORIDE 107 mmol/L (98-107); CREATININE 0.82 mg/dL (0.7-1.3)
[2020-07-27 07:13] LABS: ALKALINE PHOSPHATASE 75 U/L (45-117); BILIRUBIN,TOTAL 0.3 mg/dL (0.2-1.0); TOTAL PROTEIN 7.1 g/dL (6.4-8.2)
--- NOTE | 2020-07-27 07:40 | NUR ---
WEARING APPAREL PRESSER: PT TO ROOM FROM WALL VIA [facility]BRAM
[2020-07-27] MEDS ORDERED: LISINOPRIL 20 MG TABLET ONE (07:56)
[2020-07-27 08:20] LABS: TROPONIN I < 0.015 ng/mL (0.000-0.045)
--- NOTE | 2020-07-27 08:40 | NUR ---
MEAL TRAY GIVEN TO PT
--- NOTE | 2020-07-27 09:17 | NUR ---
pt given taxi voucher for [facility]. [employer] called
[2020-07-27 09:18] VITALS: BP 137/72
== END 2020-07-27 09:23 | disposition home or self-care (01) ==
LOC: ED 09:11
DX: R07.89 Other chest pain (principal); F15.10 Other stimulant abuse, uncomplicated; I10 Essential (primary) hypertension; R51.9 Headache, unspecified; R10.9 Unspecified abdominal pain; F17.200 Nicotine dependence, unspecified, uncomplicated; Z90.89 Acquired absence of other organs; Z90.49 Acquired absence of other specified parts of digestive tract
CPT/HCPCS: 36415; 80053; 83690; 84484; 85025; 93005; 99284

== ENCOUNTER 2020-10-30 12:43 | Inpatient (IN) | payer MEDICAID ==
[~2020-10-30] VITALS: Ht 182.9 cm; Wt 74.8 kg
--- NOTE | 2020-10-30 13:35 | NUR ---
DR. CRUZ AT BEDSIDE FOR EVALUATION. PER PATIENT HE WAS SHOOTING METH 3 DAYS AGO AND AFTER INJECTION SITE BECAME SWOLLEN AND PAINFUL AND STARTED TRAVELING TO WRIST AND HAND. PT ATTACHED TO MONITORS. VSS.
[2020-10-30] MEDS ORDERED: OXYcodone/APAP 5/325MG TABLET PO ONE (14:00)
[2020-10-30] MEDS ORDERED: SODIUM CHLORIDE FLUSH 10ML SYR IVF ONE (14:00)
[2020-10-30] MEDS ORDERED: VANCOMYCIN PER PHARMACY MC PRN ×2 (14:00→17:00)
[2020-10-30] MEDS ORDERED: VANCOMYCIN 1,500 MG in SODIUM CHLORIDE 0.9% 250 ML IV ONE (14:00)
[2020-10-30] MEDS ORDERED: KETOROLAC 30 MG/1 ML IVPush ONE (14:00)
[2020-10-30] MEDS ORDERED: SODIUM CHLORIDE 0.9% 1,000ML IVBOLUS ONE ×2 (14:00)
[2020-10-30] MEDS ORDERED: AMPICILLIN/SULBACTAM 3 GM in SODIUM CHLORIDE 0.9% 100 ML IV ONE (14:00)
[2020-10-30] MEDS ORDERED: OXYcodone/APAP 5/325MG TABLET ONE (14:04)
[2020-10-30] MEDS ORDERED: KETOROLAC 30 MG/1 ML ONE (14:04)
[2020-10-30 14:05] LABS: BASOPHILS % (AUTO) 0 % (0-1); EOSINOPHILS % (AUTO) 1 % (1-7); LYMPHOCYTES % (AUTO) 13 % (22-44); MEAN CORPUSCULAR HEMOGLOBIN 30.3 pg (27.5-34.5); MEAN CORPUSCULAR HGB CONC 33.3 g/dL (33.2-36.2); MEAN PLATELET VOLUME 8.5 fL (7.4-10.4); MONOCYTES % (AUTO) 8 % (2-9); NEUTROPHILS % (AUTO) 78 % (42-75); PLATELET COUNT 287 x10^3/uL (130-400); RED BLOOD COUNT 5.57 x10^6/uL (4.38-5.82); RED CELL DISTRIBUTION WIDTH 15.1 % (9.4-14.8)
[2020-10-30 14:07] LABS: MD NO
[2020-10-30 14:19] LABS: ALBUMIN 4.4 g/dL (3.4-5.0); ANION GAP 5 mmol/L (5-15); CALCIUM 9.5 mg/dL (8.5-10.1); CHLORIDE 104 mmol/L (98-107)
[2020-10-30 14:22] LABS: CREATININE 0.75 mg/dL (0.7-1.3)
[2020-10-30 14:23] LABS: ALANINE AMINOTRANSFERASE 157 U/L (12-78); ALKALINE PHOSPHATASE 111 U/L (45-117); TOTAL PROTEIN 8.8 g/dL (6.4-8.2)
--- NOTE | 2020-10-30 14:45 | NUR ---
PT TO GO TO CT. ASLEEP WITH EVEN AND UNLABORED RESPIRATIONS. VSS.
--- NOTE | 2020-10-30 14:55 | NUR ---
BREAK RN: SBAR RPT REC'D. VANCO IVPB AND NS BOLUS INFUSING W/O DIFFICULTY. PT VSS NOTED. PT RESTING W/ EYES CLOSED, RESP EVEN NON-LABORED.
[2020-10-30] MEDS ORDERED: OMNIPAQUE 350 MG/ML, 100ML BOTTLE ONE (15:15)
--- NOTE | 2020-10-30 15:36 | NUR ---
PT BACK FROM CT. ASLEEP WITH EVEN AND UNLABORED RR. VSS.
[2020-10-30] MEDS ORDERED: ONDANSETRON 2MG/ML, 2ML IVPush PRN (17:00)
[2020-10-30] MEDS: LACTATED RINGERS 1,000 ML IV SCH (17:00)
[2020-10-30] MEDS ORDERED: ACETAMINOPHEN 325 MG TABLET PO PRN (17:00)
[2020-10-30] MEDS ORDERED: LABETALOL 5MG/ML, 20ML IVPush PRN (17:00)
--- NOTE | 2020-10-30 17:46 | NUR ---
REPORT CALLED TO JUNO. PT TRANSFERRING TO FLOOR WITH ALL BELONGINGS IN STABLE CONDITION.
[2020-10-30] MEDS ORDERED: PHARMACOKINETIC MONITORING MC PRN (18:00)
[2020-10-30] MEDS ORDERED: PHARMACOKINETIC CONSULTATION MC ONE (18:00)
[2020-10-30 18:31] VITALS: BP 171/96
[2020-10-30 20:00] VITALS: BP 162/90
[2020-10-30] MEDS: HEPARIN 5,000 UNITS/ML, 1ML SQ SCH (20:00)
[2020-10-30] MEDS: AMPICILLIN/SULBACTAM 3 GM in SODIUM CHLORIDE 0.9% 100 ML IV SCH (20:36)
[2020-10-30] MEDS: IBUPROFEN 600 MG TABLET PO PRN (20:36)
[2020-10-30] MEDS: KETOROLAC 30 MG/1 ML IVPush PRN (23:05)
[2020-10-31] VITALS (8 sets, daily range): BP systolic 142–176; BP diastolic 87–109
[2020-10-31] MEDS: LACTATED RINGERS 1,000 ML IV SCH ×3 (01:25→21:00)
[2020-10-31] MEDS: AMPICILLIN/SULBACTAM 3 GM in SODIUM CHLORIDE 0.9% 100 ML IV SCH ×4 (01:25→20:46)
[2020-10-31] MEDS: VANCOMYCIN 1,200 MG in SODIUM CHLORIDE 0.9% 250 ML IV SCH ×2 (03:05→15:07)
[2020-10-31] MEDS: HEPARIN 5,000 UNITS/ML, 1ML SQ SCH ×3 (03:37→20:00)
[2020-10-31] MEDS ORDERED: MORPHINE SULFATE 4 MG/ML, 1ML ONE (05:20)
[2020-10-31] MEDS ORDERED: morphine SULFATE 10 MG/ML, 1ML IM PRN ×2 (05:30)
[2020-10-31] MEDS: KETOROLAC 30 MG/1 ML IVPush PRN (06:17)
[2020-10-31] MEDS ORDERED: SUCCINYLCHOLINE 20 MG/ML, 10ML ONE (09:32)
[2020-10-31] MEDS ORDERED: PROPOFOL 10 MG/ML, 20ML ONE (09:32)
[2020-10-31] MEDS ORDERED: CEFAZOLIN 1,000 MG ONE (09:32)
[2020-10-31] MEDS ORDERED: FENTANYL PF 250 MCG/5ML ONE (10:03)
[2020-10-31] MEDS ORDERED: OXYcodone 5 MG/5 ML ORAL.SOL UDC PO PRN (10:30)
[2020-10-31] MEDS ORDERED: MEPERIDINE/PF 25MG/0.5ML IVPush PRN (10:30)
[2020-10-31] MEDS ORDERED: ONDANSETRON 2MG/ML, 2ML IVPush PRN (10:30)
[2020-10-31] MEDS ORDERED: LABETALOL 5MG/ML, 20ML IV PRN (10:30)
[2020-10-31] MEDS ORDERED: LORazepam 2 MG/ML, 1ML IVPush PRN (10:30)
[2020-10-31] MEDS ORDERED: PROMETHAZINE 25 MG/ML, 1ML IVPush PRN (10:30)
[2020-10-31] MEDS ORDERED: HYDROmorphone 1 MG/ML, 1ML INJ IVPush PRN (10:30)
[2020-10-31] MEDS ORDERED: FENTANYL PF 100 MCG/2ML IV PRN (10:30)
[2020-10-31] MEDS ORDERED: METHOCARBAMOL 1,000 MG in DEXTROSE 5% 100 ML IV PRN (10:30)
[2020-10-31] MEDS ORDERED: hydrALAzine 20 MG/ML, 1ML IV PRN (10:30)
[2020-10-31] MEDS ORDERED: EPHEDRINE 50 MG/ML, 1ML IVPush PRN (10:30)
[2020-10-31] MEDS ORDERED: ACETAMINOPHEN 325 MG TABLET PO PRN (10:30)
[2020-10-31 12:02] LABS: BASOPHILS % (AUTO) 0 % (0-1); EOSINOPHILS % (AUTO) 0 % (1-7); LYMPHOCYTES % (AUTO) 4 % (22-44); MEAN CORPUSCULAR HEMOGLOBIN 29.9 pg (27.5-34.5); MEAN CORPUSCULAR HGB CONC 33.1 g/dL (33.2-36.2); MEAN PLATELET VOLUME 8.7 fL (7.4-10.4); MONOCYTES % (AUTO) 3 % (2-9); NEUTROPHILS % (AUTO) 93 % (42-75); PLATELET COUNT 233 x10^3/uL (130-400); RED BLOOD COUNT 5.01 x10^6/uL (4.38-5.82); RED CELL DISTRIBUTION WIDTH 15.3 % (9.4-14.8)
[2020-10-31 12:13] LABS: ANION GAP 4 mmol/L (5-15); CALCIUM 8.3 mg/dL (8.5-10.1); CHLORIDE 106 mmol/L (98-107); CREATININE 0.69 mg/dL (0.7-1.3)
[2020-10-31 12:29] LABS: MD SCAN
[2020-10-31] MEDS: IBUPROFEN 600 MG TABLET PO PRN ×2 (15:06→20:50)
[2020-11-01 00:40] VITALS: BP 153/88
[2020-11-01] MEDS: AMPICILLIN/SULBACTAM 3 GM in SODIUM CHLORIDE 0.9% 100 ML IV SCH ×4 (01:41→19:32)
[2020-11-01] MEDS: VANCOMYCIN 1,200 MG in SODIUM CHLORIDE 0.9% 250 ML IV SCH ×2 (03:00→15:43)
[2020-11-01] MEDS: HEPARIN 5,000 UNITS/ML, 1ML SQ SCH ×3 (04:00→19:37)
[2020-11-01 04:05] VITALS: BP 168/102
[2020-11-01] MEDS: IBUPROFEN 600 MG TABLET PO PRN (04:38)
[2020-11-01] MEDS: LACTATED RINGERS 1,000 ML IV SCH (05:00)
[2020-11-01 07:15] VITALS: BP 153/87
[2020-11-01] MEDS: AMLODIPINE 10 MG TAB PO SCH (09:21)
[2020-11-01] MEDS: KETOROLAC 30 MG/1 ML IVPush PRN ×2 (09:21→19:32)
[2020-11-01 12:50] VITALS: BP 174/118
[2020-11-01] MEDS ORDERED: OXYcodone/APAP 10/325MG TABLET ONE (13:47)
[2020-11-01] MEDS: OXYcodone/APAP 5/325MG TABLET PO PRN ×3 (13:49→21:09)
[2020-11-01 14:42] VITALS: BP 156/90
[2020-11-01 14:45] LABS: BASOPHILS % (AUTO) 1 % (0-1); EOSINOPHILS % (AUTO) 0 % (1-7); LYMPHOCYTES % (AUTO) 11 % (22-44); MEAN CORPUSCULAR HGB CONC 32.9 g/dL (33.2-36.2); MEAN PLATELET VOLUME 8.9 fL (7.4-10.4); MONOCYTES % (AUTO) 11 % (2-9); NEUTROPHILS % (AUTO) 78 % (42-75); PLATELET COUNT 286 x10^3/uL (130-400); RED BLOOD COUNT 4.94 x10^6/uL (4.38-5.82); RED CELL DISTRIBUTION WIDTH 15.1 % (9.4-14.8)
[2020-11-01 14:46] LABS: MD NO
[2020-11-01 15:00] LABS: ANION GAP 6 mmol/L (5-15); CALCIUM 8.2 mg/dL (8.5-10.1); CHLORIDE 107 mmol/L (98-107); CREATININE 0.63 mg/dL (0.7-1.3)
[2020-11-01 20:25] VITALS: BP 167/90
[2020-11-02] MEDS ORDERED: VANCOMYCIN 1,400 MG in SODIUM CHLORIDE 0.9% 250 ML IV SCH (01:00)
[2020-11-02] MEDS: OXYcodone/APAP 5/325MG TABLET PO PRN ×6 (01:14→21:39)
[2020-11-02 01:48] VITALS: BP 132/99
[2020-11-02] MEDS: KETOROLAC 30 MG/1 ML IVPush PRN ×4 (02:17→21:06)
[2020-11-02] MEDS: AMPICILLIN/SULBACTAM 3 GM in SODIUM CHLORIDE 0.9% 100 ML IV SCH ×2 (03:12→09:20)
[2020-11-02] MEDS: HEPARIN 5,000 UNITS/ML, 1ML SQ SCH ×3 (04:00→20:00)
[2020-11-02 07:15] VITALS: BP 136/77
[2020-11-02 08:06] LABS: BASOPHILS % (AUTO) 0 % (0-1); EOSINOPHILS % (AUTO) 2 % (1-7); LYMPHOCYTES % (AUTO) 17 % (22-44); MEAN CORPUSCULAR HEMOGLOBIN 30.2 pg (27.5-34.5); MEAN CORPUSCULAR HGB CONC 33.3 g/dL (33.2-36.2); MEAN PLATELET VOLUME 8.8 fL (7.4-10.4); MONOCYTES % (AUTO) 14 % (2-9); NEUTROPHILS % (AUTO) 67 % (42-75); PLATELET COUNT 298 x10^3/uL (130-400); RED BLOOD COUNT 4.98 x10^6/uL (4.38-5.82); RED CELL DISTRIBUTION WIDTH 15.2 % (9.4-14.8)
[2020-11-02 08:20] LABS: MD NO
[2020-11-02] MEDS: AMLODIPINE 10 MG TAB PO SCH (08:41)
[2020-11-02 13:05] VITALS: BP 154/93
[2020-11-02 18:57] VITALS: BP 116/71
[2020-11-02] MEDS: CLINDAMYCIN 300 MG CAPSULE PO SCH (21:06)
[2020-11-02] MEDS: AMOXICILLIN/CLAV 875-125MG TABLET PO SCH (21:06)
[2020-11-03] MEDS: HEPARIN 5,000 UNITS/ML, 1ML SQ SCH ×3 (00:17→20:00)
[2020-11-03 00:29] VITALS: BP 129/85
[2020-11-03] MEDS: OXYcodone/APAP 5/325MG TABLET PO PRN ×6 (02:02→23:15)
[2020-11-03] MEDS: KETOROLAC 30 MG/1 ML IVPush PRN ×3 (02:59→22:10)
[2020-11-03 06:59] VITALS: BP 152/85
[2020-11-03] MEDS: AMLODIPINE 10 MG TAB PO SCH (08:27)
[2020-11-03] MEDS: AMOXICILLIN/CLAV 875-125MG TABLET PO SCH ×2 (09:37→21:30)
[2020-11-03] MEDS: CLINDAMYCIN 300 MG CAPSULE PO SCH ×2 (09:37→21:30)
[2020-11-03 12:10] LABS: BASOPHILS % (AUTO) 1 % (0-1); EOSINOPHILS % (AUTO) 2 % (1-7); LYMPHOCYTES % (AUTO) 12 % (22-44); MEAN CORPUSCULAR HEMOGLOBIN 30.2 pg (27.5-34.5); MEAN CORPUSCULAR HGB CONC 33.4 g/dL (33.2-36.2); MEAN PLATELET VOLUME 8.4 fL (7.4-10.4); MONOCYTES % (AUTO) 12 % (2-9); NEUTROPHILS % (AUTO) 74 % (42-75); PLATELET COUNT 271 x10^3/uL (130-400); RED CELL DISTRIBUTION WIDTH 15.2 % (9.4-14.8)
[2020-11-03 12:14] LABS: MD NO
[2020-11-03 13:08] VITALS: BP 142/86
[2020-11-03] MEDS: ONDANSETRON ODT 4 MG PO PRN ×2 (13:37→22:10)
[2020-11-03] MEDS ORDERED: KETOROLAC 30 MG/1 ML IM PRN (15:50)
[2020-11-03 19:26] VITALS: BP 126/84
[2020-11-04] MEDS: OXYcodone/APAP 5/325MG TABLET PO PRN ×2 (03:56→08:38)
[2020-11-04 03:59] VITALS: BP 129/87
[2020-11-04] MEDS: HEPARIN 5,000 UNITS/ML, 1ML SQ SCH (04:00)
[2020-11-04] MEDS: KETOROLAC 30 MG/1 ML IVPush PRN (04:17)
[2020-11-04 07:45] VITALS: BP 144/85
[2020-11-04] MEDS ORDERED: IBUP-1223 PO (08:13)
[2020-11-04] MEDS ORDERED: AMOX1TAB12 PO (08:13)
[2020-11-04] MEDS ORDERED: CLIN300C9 PO (08:13)
[2020-11-04] MEDS ORDERED: AMLO-211 PO (08:13)
[2020-11-04] MEDS: AMLODIPINE 10 MG TAB PO SCH (08:37)
[2020-11-04] MEDS: AMOXICILLIN/CLAV 875-125MG TABLET PO SCH (08:37)
[2020-11-04] MEDS: CLINDAMYCIN 300 MG CAPSULE PO SCH (08:42)
== END 2020-11-04 08:50 | disposition left against medical advice (07) | DRG 603 ==
LOC: ED 16:09 → SUATTDRO 16:23 → INTOOBSV 16:24 → EDIP 16:24 → 4NE 17:51 → OBSVTOIN 10-31 15:43
PROVIDERS: ADMIT Family Medicine; ATTEND Family Medicine
PROC: 0X9D0ZZ Drainage of Right Lower Arm, Open Approach (ICD-10-PCS; 2020-10-31)
PROC: 0X9G0ZZ Drainage of Right Wrist Region, Open Approach (ICD-10-PCS; principal; 2020-10-31 10:30)
DX: L03.113 Cellulitis of right upper limb (principal); K50.90 Crohn's disease, unspecified, without complications; L02.413 Cutaneous abscess of right upper limb; Z20.822 Contact with and (suspected) exposure to COVID-19; F11.10 Opioid abuse, uncomplicated; F15.10 Other stimulant abuse, uncomplicated; I10 Essential (primary) hypertension; Z66 Do not resuscitate; Z53.29 Procedure and treatment not carried out because of patient's decision for other reasons; Z90.49 Acquired absence of other specified parts of digestive tract; Z59.0 Homelessness; Z72.0 Tobacco use; Z71.6 Tobacco abuse counseling
CPT/HCPCS: 36415; 80048; 80053; 80202; 83605; 83735; 84145; 85025; 87040; 87070; 87075; 87205; 87635; 96365; 99285; G0378; J0295; J0690; J1644; J1885; J2405; J2704; J3010; J3370; Q0162; Q9967; J0330; J2270; J7030; J7050; J7120

== ENCOUNTER 2020-12-02 17:49 | Observation (INO) | payer MEDICAID ==
[~2020-12-02] VITALS: Ht 182.9 cm; Wt 66.0 kg
[~2020-12-02 17:49] MED LIST changes: +AMLO-211 PO; +CLIN300C9 PO; +IBUP-1223 PO
--- NOTE | 2020-12-02 18:48 | NUR ---
PT HAS BEEN OFF METH AND HEROIN X5 DAYS. PT STATES HE IS HAVING SUICIDAL THOUGHT FOR LAST FEW DAYS. "I'VE PLAYED CHICKEN WITH A TRAIN A COUPLE TIMES". DENIES HAVING THESE THOUGHT BEFORE. PT UNDRESSED FULLY AND PLACED INTO GOWN. 1 BELONG BAG AND 1 BACKPACK PLACED IN ED LOCKER. PT ATTEMPTED TO PROVIDE URINE SAMPLE, WITHOUT SUCCESS. "I HAVEN'T EATEN OR DRANK TODAY".
[2020-12-02 19:03] LABS: BASOPHILS % (AUTO) 1 % (0-1); EOSINOPHILS % (AUTO) 1 % (1-7); LYMPHOCYTES % (AUTO) 17 % (22-44); MEAN CORPUSCULAR HEMOGLOBIN 30.2 pg (27.5-34.5); MEAN CORPUSCULAR HGB CONC 33.2 g/dL (33.2-36.2); MEAN PLATELET VOLUME 8.9 fL (7.4-10.4); MONOCYTES % (AUTO) 6 % (2-9); NEUTROPHILS % (AUTO) 76 % (42-75); PLATELET COUNT 265 x10^3/uL (130-400); RED BLOOD COUNT 4.78 x10^6/uL (4.38-5.82); RED CELL DISTRIBUTION WIDTH 14.7 % (9.4-14.8)
[2020-12-02 19:07] LABS: MD NO
--- NOTE | 2020-12-02 19:09 | NUR ---
PT TRANSFERRED TO ROOM 1. ROOM SECURE. PT IN DIRECT SIGHT OF SITTER. JOSE AT BEDSIDE FOR ASSESSMENT. REPORT GIVEN TO REANNA TONEY.
--- NOTE | 2020-12-02 19:10 | NUR ---
Report from Mimi TONEY
[2020-12-02 19:15] LABS: ALANINE AMINOTRANSFERASE 57 U/L (12-78); ALBUMIN 3.2 g/dL (3.4-5.0); ANION GAP 6 mmol/L (5-15); CALCIUM 8.6 mg/dL (8.5-10.1); CHLORIDE 107 mmol/L (98-107); CREATININE 0.73 mg/dL (0.7-1.3)
[2020-12-02 19:17] LABS: ALKALINE PHOSPHATASE 89 U/L (45-117); BILIRUBIN,TOTAL 0.2 mg/dL (0.2-1.0); TOTAL PROTEIN 7.3 g/dL (6.4-8.2)
[2020-12-02 19:48] LABS: SALICYLATE LEVEL < 1.7 mg/dL (2.8-20.0)
--- NOTE | 2020-12-02 19:50 | NUR ---
Pt ambulatory with steady gait to restroom for urine sample
[2020-12-02] MEDS ORDERED: OLANZAPINE 5 MG TABLET ONE (19:56)
[2020-12-02] MEDS ORDERED: OLANZAPINE ODT 10MG ONE (19:59)
--- NOTE | 2020-12-02 20:18 | NUR ---
Pt provided sandwhich and water per request
[2020-12-02 20:27] LABS: AMPHETAMINE SCREEN, URINE Positive (Negative); BARBITURATE SCREEN, URINE Negative (Negative); BENZODIAZEPINE SCREEN, URINE Negative (Negative); CANNABINOID SCREEN, URINE Positive (Negative); COCAINE SCREEN, URINE Negative (Negative); METHADONE SCREEN, URINE Negative (Negative); OPIATE SCREEN, URINE Negative (Negative)
[2020-12-02] MEDS ORDERED: BACITRACIN ZINC OINT 500U/GM, 0.9 GM ONE (21:36)
[2020-12-02] MEDS ORDERED: NEOSPORIN OINT. PKT 1 PACKET ONE (21:37)
--- NOTE | 2020-12-02 21:55 | NUR ---
medical genetics director at bedside to complete wound care
--- NOTE | 2020-12-02 22:15 | NUR ---
wound care complete, pt tolerated well, resting in bed, no other requests at this time
[2020-12-02 22:54] VITALS: BP 124/86
--- NOTE | 2020-12-02 23:22 | NUR ---
PT LYING DOWN IN BED WITH EYES CLOSED, EVEN CHEST RISE, SITTER IN SIGHT OF PT, SHAHZAD, LUKE
--- NOTE | 2020-12-03 00:55 | NUR ---
Packet faxed to [facility] facilities, [facility] noified of pending packet
[2020-12-03] MEDS ORDERED: CLINDAMYCIN 300 MG CAPSULE ONE (01:19)
[2020-12-03] MEDS ORDERED: CLINDAMYCIN 300 MG CAPSULE PO ONE (01:30)
--- NOTE | 2020-12-03 02:17 | NUR ---
Report to Karen TONEY
[2020-12-03] MEDS ORDERED: OLANZAPINE ODT 10MG PO SCH (09:00)
== END 2020-12-03 02:31 ==
LOC: ED 19:07 → EDIP 12-03 00:42
PROVIDERS: ADMIT Emergency Medicine; ATTEND Emergency Medicine
DX: R45.851 Suicidal ideations (principal); Z20.822 Contact with and (suspected) exposure to COVID-19; L03.113 Cellulitis of right upper limb; I10 Essential (primary) hypertension; F43.10 Post-traumatic stress disorder, unspecified; F90.9 Attention-deficit hyperactivity disorder, unspecified type; K50.90 Crohn's disease, unspecified, without complications; F15.10 Other stimulant abuse, uncomplicated; F11.10 Opioid abuse, uncomplicated; F17.210 Nicotine dependence, cigarettes, uncomplicated; Z87.442 Personal history of urinary calculi; Z72.9 Problem related to lifestyle, unspecified; Z79.899 Other long term (current) drug therapy
CPT/HCPCS: 36415; 73130; 80053; 80299; 80307; 80320; 80329; 85025; 87426; 99284; G0378; G0480

== ENCOUNTER 2020-12-03 01:36 | Inpatient (IN) | payer MEDICAID ==
[~2020-12-03] VITALS: Ht 182.9 cm; Wt 70.4 kg
[2020-12-03 02:15] VITALS: BP 149/87
[2020-12-03 02:30] VITALS: BP 149/87
[2020-12-03] MEDS ORDERED: DOCUSATE 100 MG CAPSULE PO PRN (03:00)
[2020-12-03] MEDS ORDERED: BISACODYL 10 MG SUPP PR PRN (03:00)
[2020-12-03] MEDS ORDERED: POLYETHYLENE GLYCOL 17 GM PACKET PO PRN (03:00)
[2020-12-03 07:44] VITALS: BP 161/88
[2020-12-03 09:04] LABS: CHOL/HDL RATIO 2.5; FREE T4 (FREE THYROXINE) 1.03 ng/dL (0.76-1.46); LDL/HDL RATIO 1.1 (0.5-3.0)
[2020-12-03] MEDS: CLINDAMYCIN 300 MG CAPSULE PO SCH ×2 (09:33→14:07)
[2020-12-03] MEDS: BUPRENORPHINE/NALOXONE 2-0.5MG SL SCH ×2 (15:30→21:11)
[2020-12-03] MEDS: METHOCARBAMOL 500 MG TABLET PO PRN (15:42)
[2020-12-03 19:33] VITALS: BP 148/107
[2020-12-03] MEDS: DOXYCYCLINE 100MG TABLET PO SCH (21:10)
[2020-12-03] MEDS: AMOXICILLIN/CLAV 875-125MG TABLET PO SCH (21:10)
[2020-12-03] MEDS: ONDANSETRON ODT 4 MG PO PRN (21:29)
[2020-12-04] MEDS ORDERED: IBUPROFEN 200 MG TABLET PO ONE (03:30)
[2020-12-04 08:01] VITALS: BP 147/84
[2020-12-04] MEDS: BUPRENORPHINE/NALOXONE 2-0.5MG SL SCH (09:00)
[2020-12-04] MEDS: DOXYCYCLINE 100MG TABLET PO SCH ×2 (09:39→20:24)
[2020-12-04] MEDS: AMOXICILLIN/CLAV 875-125MG TABLET PO SCH ×2 (11:30→20:24)
[2020-12-04] MEDS ORDERED: BUPRENORPHINE/NALOXONE 2-0.5MG SL ONE (13:00)
[2020-12-04 17:16] LABS: MICROSCOPIC NOT IND
[2020-12-04] MEDS: ONDANSETRON ODT 4 MG PO PRN ×2 (17:22→20:24)
[2020-12-04] MEDS ORDERED: LORazepam 1MG TABLET PO ONE (18:00)
[2020-12-04] MEDS ORDERED: BUPRENORPHINE HCL 2 MG TAB.SUBL SL SCH (18:30)
[2020-12-04 19:24] VITALS: BP 157/100
[2020-12-04] MEDS: DIAZEPAM 10 MG TABLET PO PRN (20:24)
[2020-12-04] MEDS: METHOCARBAMOL 500 MG TABLET PO PRN (20:33)
[2020-12-04 21:58] VITALS: BP 150/89
[2020-12-05] MEDS: DIAZEPAM 10 MG TABLET PO PRN ×3 (05:35→23:08)
[2020-12-05] MEDS: ACETAMINOPHEN 325 MG TABLET PO PRN (05:35)
[2020-12-05 06:54] LABS: ANION GAP 5 mmol/L (5-15); CALCIUM 8.8 mg/dL (8.5-10.1); CHLORIDE 106 mmol/L (98-107)
[2020-12-05 07:00] LABS: BASOPHILS % (AUTO) 1 % (0-1); EOSINOPHILS % (AUTO) 8 % (1-7); LYMPHOCYTES % (AUTO) 22 % (22-44); MEAN CORPUSCULAR HEMOGLOBIN 30.1 pg (27.5-34.5); MEAN CORPUSCULAR HGB CONC 33.2 g/dL (33.2-36.2); MEAN PLATELET VOLUME 8.6 fL (7.4-10.4); MONOCYTES % (AUTO) 10 % (2-9); NEUTROPHILS % (AUTO) 60 % (42-75); PLATELET COUNT 263 x10^3/uL (130-400); RED BLOOD COUNT 4.56 x10^6/uL (4.38-5.82); RED CELL DISTRIBUTION WIDTH 14.7 % (9.4-14.8)
[2020-12-05 07:56] VITALS: BP 148/101
[2020-12-05] MEDS: DOXYCYCLINE 100MG TABLET PO SCH ×2 (08:58→20:39)
[2020-12-05] MEDS: AMOXICILLIN/CLAV 875-125MG TABLET PO SCH ×2 (08:58→20:39)
[2020-12-05] MEDS: METHOCARBAMOL 500 MG TABLET PO PRN ×2 (10:16→23:08)
[2020-12-05] MEDS ORDERED: LORazepam 1MG TABLET ONE (10:30)
[2020-12-05] MEDS ORDERED: LORazepam 1MG TABLET PO ONE (11:00)
[2020-12-05] MEDS: ONDANSETRON ODT 4 MG PO PRN (17:28)
[2020-12-05 19:45] VITALS: BP 127/85
[2020-12-06 07:34] VITALS: BP 145/86
[2020-12-06] MEDS: DIAZEPAM 10 MG TABLET PO PRN ×2 (07:42→13:15)
[2020-12-06] MEDS: DOXYCYCLINE 100MG TABLET PO SCH ×2 (09:22→20:41)
[2020-12-06] MEDS: AMOXICILLIN/CLAV 875-125MG TABLET PO SCH ×2 (09:22→20:41)
[2020-12-06] MEDS: ACETAMINOPHEN 325 MG TABLET PO PRN (13:15)
[2020-12-06] MEDS ORDERED: OLANZAPINE 5 MG TABLET ONE (14:55)
[2020-12-06] MEDS: OLANZAPINE 5 MG TABLET PO SCH ×2 (15:10→20:41)
[2020-12-06 19:51] VITALS: BP 141/85
[2020-12-07 07:55] VITALS: BP 150/111
[2020-12-07] MEDS: OLANZAPINE 5 MG TABLET PO SCH (09:09)
[2020-12-07] MEDS: DOXYCYCLINE 100MG TABLET PO SCH ×2 (09:09→20:10)
[2020-12-07] MEDS: AMOXICILLIN/CLAV 875-125MG TABLET PO SCH ×2 (09:09→20:10)
[2020-12-07] MEDS: DIAZEPAM 10 MG TABLET PO PRN ×2 (09:20→17:54)
[2020-12-07 19:46] VITALS: BP 136/94
[2020-12-07] MEDS: OLANZAPINE 2.5 MG TABLET PO SCH (20:10)
[2020-12-08] MEDS: DIAZEPAM 10 MG TABLET PO PRN ×3 (00:10→20:10)
[2020-12-08 07:46] VITALS: BP 136/85
[2020-12-08] MEDS: DOXYCYCLINE 100MG TABLET PO SCH ×2 (09:05→20:05)
[2020-12-08] MEDS: OLANZAPINE 2.5 MG TABLET PO SCH ×2 (09:05→20:05)
[2020-12-08] MEDS: AMOXICILLIN/CLAV 875-125MG TABLET PO SCH ×2 (09:05→20:05)
[2020-12-08 19:33] VITALS: BP 150/100
[2020-12-09 01:00] VITALS: BP 132/80
[2020-12-09 07:16] VITALS: BP 131/78
[2020-12-09] MEDS: AMOXICILLIN/CLAV 875-125MG TABLET PO SCH ×2 (09:01→20:48)
[2020-12-09] MEDS: OLANZAPINE 2.5 MG TABLET PO SCH ×2 (09:02→20:49)
[2020-12-09] MEDS: DOXYCYCLINE 100MG TABLET PO SCH ×2 (09:02→20:48)
[2020-12-09] MEDS: DIAZEPAM 10 MG TABLET PO PRN ×3 (09:35→20:49)
[2020-12-09 19:18] VITALS: BP 131/83
[2020-12-09] MEDS ORDERED: TRAZODONE 50MG TABLET PO PRN (21:30)
[2020-12-10 07:39] VITALS: BP 162/103
[2020-12-10] MEDS: AMOXICILLIN/CLAV 875-125MG TABLET PO SCH ×2 (09:06→20:29)
[2020-12-10] MEDS: DOXYCYCLINE 100MG TABLET PO SCH ×2 (09:06→20:29)
[2020-12-10] MEDS: OLANZAPINE 2.5 MG TABLET PO SCH ×2 (09:06→20:29)
[2020-12-10] MEDS: BUPRENORPHINE/NALOXONE 2-0.5MG SL SCH ×2 (09:08→20:34)
[2020-12-10 12:47] VITALS: BP 149/109
[2020-12-10] MEDS: DIAZEPAM 10 MG TABLET PO PRN (17:00)
[2020-12-10 19:45] VITALS: BP 157/99
[2020-12-11] MEDS: DIAZEPAM 10 MG TABLET PO PRN (02:17)
[2020-12-11] MEDS: ACETAMINOPHEN 325 MG TABLET PO PRN (05:55)
[2020-12-11 07:38] VITALS: BP 154/104
[2020-12-11] MEDS: BUPRENORPHINE/NALOXONE 2-0.5MG SL SCH ×2 (08:43→20:11)
[2020-12-11] MEDS: AMOXICILLIN/CLAV 875-125MG TABLET PO SCH ×2 (08:43→20:11)
[2020-12-11] MEDS: DOXYCYCLINE 100MG TABLET PO SCH ×2 (08:43→20:11)
[2020-12-11] MEDS: OLANZAPINE 2.5 MG TABLET PO SCH (08:43)
[2020-12-11] MEDS ORDERED: LISINOPRIL 20 MG TABLET ONE (09:55)
[2020-12-11] MEDS: LISINOPRIL 20 MG TABLET PO SCH (09:57)
[2020-12-11] MEDS: HYDROXYZINE PAMOATE 50MG CAP PO PRN (14:37)
[2020-12-11] MEDS: ONDANSETRON ODT 4 MG PO PRN (16:57)
[2020-12-11 20:03] VITALS: BP 125/86
[2020-12-11] MEDS: OLANZAPINE 10 MG TABLET PO SCH (20:11)
[2020-12-11] MEDS: DOXEPIN 25 MG CAPSULE PO PRN (20:18)
[2020-12-12] MEDS: HYDROXYZINE PAMOATE 50MG CAP PO PRN ×4 (01:13→23:21)
[2020-12-12 07:48] VITALS: BP 118/78
[2020-12-12] MEDS: AMOXICILLIN/CLAV 875-125MG TABLET PO SCH ×2 (08:35→21:18)
[2020-12-12] MEDS: LISINOPRIL 20 MG TABLET PO SCH (08:36)
[2020-12-12] MEDS: DOXYCYCLINE 100MG TABLET PO SCH ×2 (08:36→20:37)
[2020-12-12] MEDS: BUPRENORPHINE/NALOXONE 2-0.5MG SL SCH ×2 (08:36→21:00)
[2020-12-12] MEDS: OLANZAPINE 2.5 MG TABLET PO SCH (08:36)
[2020-12-12] MEDS: ONDANSETRON ODT 4 MG PO PRN (13:55)
[2020-12-12 19:30] VITALS: BP 124/85
[2020-12-12] MEDS: OLANZAPINE 10 MG TABLET PO SCH (20:36)
[2020-12-12] MEDS: DOXEPIN 25 MG CAPSULE PO PRN (23:21)
[2020-12-13] MEDS: ONDANSETRON ODT 4 MG PO PRN (03:10)
[2020-12-13] MEDS: ACETAMINOPHEN 325 MG TABLET PO PRN (03:11)
[2020-12-13 07:39] VITALS: BP 104/68
[2020-12-13] MEDS: OLANZAPINE 2.5 MG TABLET PO SCH (08:02)
[2020-12-13] MEDS: LISINOPRIL 20 MG TABLET PO SCH (08:03)
[2020-12-13] MEDS: BUPRENORPHINE/NALOXONE 2-0.5MG SL SCH (08:03)
[2020-12-13] MEDS: AMOXICILLIN/CLAV 875-125MG TABLET PO SCH (08:03)
[2020-12-13] MEDS: DOXYCYCLINE 100MG TABLET PO SCH (08:03)
[2020-12-13] MEDS: HYDROXYZINE PAMOATE 50MG CAP PO PRN (11:10)
[2020-12-13] MEDS ORDERED: LISI-170 PO (12:29)
[2020-12-13] MEDS ORDERED: OLAN2.5T10 PO (12:29)
[2020-12-13] MEDS ORDERED: OLAN10TA9 PO (12:29)
[2020-12-13] MEDS ORDERED: DOXY100T PO (12:29)
[2020-12-13] MEDS ORDERED: DOXE25CA PO (12:29)
[2020-12-13] MEDS ORDERED: AMOX1TAB12 PO (12:29)
== END 2020-12-13 13:00 | disposition home or self-care (01) | DRG 885 ==
LOC: 3E 02:19
PROVIDERS: ADMIT Psychiatry & Neurology Psychosomatic Medicine; ATTEND Psychiatry & Neurology Psychosomatic Medicine
DX: F31.5 Bipolar disorder, current episode depressed, severe, with psychotic features (principal); F11.23 Opioid dependence with withdrawal; F15.20 Other stimulant dependence, uncomplicated; K50.90 Crohn's disease, unspecified, without complications; L03.113 Cellulitis of right upper limb; R45.851 Suicidal ideations; I10 Essential (primary) hypertension; Z79.899 Other long term (current) drug therapy; Z87.442 Personal history of urinary calculi; Z90.49 Acquired absence of other specified parts of digestive tract; Z56.0 Unemployment, unspecified; Z59.0 Homelessness; F17.210 Nicotine dependence, cigarettes, uncomplicated
CPT/HCPCS: 36415; J0572; 71045; 80048; 80061; 81003; 82607; 84439; 84443; 85025; 87040; 93005; Q0162

== ENCOUNTER 2020-12-15 12:37 | Emergency (ER) | payer MEDICAID ==
[~2020-12-15 12:37] MED LIST changes: +DOXE25CA PO; +DOXY100T PO; +LISI-170 PO; +OLAN10TA9 PO; +OLAN2.5T10 PO
[2020-12-15 12:40] VITALS: BP 122/83
[2020-12-15 13:18] LABS: BASOPHILS % (AUTO) 1 % (0-1); EOSINOPHILS % (AUTO) 1 % (1-7); LYMPHOCYTES % (AUTO) 18 % (22-44); MEAN CORPUSCULAR HEMOGLOBIN 30.1 pg (27.5-34.5); MEAN CORPUSCULAR HGB CONC 33.8 g/dL (33.2-36.2); MEAN PLATELET VOLUME 8.6 fL (7.4-10.4); MONOCYTES % (AUTO) 10 % (2-9); NEUTROPHILS % (AUTO) 71 % (42-75); PLATELET COUNT 367 x10^3/uL (130-400); RED BLOOD COUNT 4.59 x10^6/uL (4.38-5.82); RED CELL DISTRIBUTION WIDTH 14.9 % (9.4-14.8)
[2020-12-15 13:24] LABS: ANION GAP 11 mmol/L (5-15); CALCIUM 9.1 mg/dL (8.5-10.1); CHLORIDE 108 mmol/L (98-107); CREATININE 0.86 mg/dL (0.7-1.3)
--- NOTE | 2020-12-15 13:28 | NUR ---
CLINICAL MATERIAL HANDLER: PT MOVED TO ROOM 1 AT THIS TIME. SECURITY MEASURES IN PLACE. REPORT TO PRIMARY RN
[2020-12-15 13:33] LABS: SALICYLATE LEVEL < 1.7 mg/dL (2.8-20.0)
[2020-12-15] MEDS ORDERED: ONDANSETRON ODT 4 MG ONE (14:25)
[2020-12-15] MEDS ORDERED: PLEASE ENTER WEIGHT MC SCH (14:30)
[2020-12-15] MEDS ORDERED: ONDANSETRON ODT 4 MG PO ONE (14:30)
[2020-12-15] MEDS ORDERED: cloniDINE 0.1MG PATCH TD ONE (14:30)
--- NOTE | 2020-12-15 14:30 | NUR ---
PT REMINDED THAT URINE IS NEEDED FOR A URINE DRUG SCREEN. PT KEEPS GOING TO BATHROOM AND STATES HE IS UNABLE TO GO.
[2020-12-15] MEDS ORDERED: OLANZAPINE 5 MG TABLET PO ONE (15:00)
[2020-12-15] MEDS ORDERED: OLANZAPINE 5 MG TABLET ONE (15:10)
--- NOTE | 2020-12-15 15:45 | NUR ---
UDS SENT TO LAB
--- NOTE | 2020-12-15 15:55 | NUR ---
PATIENT TRANSFERRED TO CARDIAC TELEMETRY IN STABLE CONDITION VIA GURNEY WITH DEVELOPMENT WRITER. ALL PATIENT BELONGINGS TAKEN TO FLOOR WITH PATIENT.
[2020-12-15 16:16] LABS: AMPHETAMINE SCREEN, URINE Positive (Negative); BARBITURATE SCREEN, URINE Negative (Negative); BENZODIAZEPINE SCREEN, URINE Positive (Negative); CANNABINOID SCREEN, URINE Positive (Negative); COCAINE SCREEN, URINE Negative (Negative); METHADONE SCREEN, URINE Negative (Negative); OPIATE SCREEN, URINE Negative (Negative)
--- NOTE | 2020-12-15 16:57 | NUR ---
SUBOXONE REQUESTED FROM PHARMACY. PT TO BE DC AFTER MED.
[2020-12-15] MEDS ORDERED: BUPRENORPHINE/NALOXONE 2-0.5MG SL ONE (17:00)
== END 2020-12-15 17:24 | disposition home or self-care (01) ==
LOC: ED 14:17
DX: R45.851 Suicidal ideations (principal); F32.9 Major depressive disorder, single episode, unspecified; I10 Essential (primary) hypertension; K50.90 Crohn's disease, unspecified, without complications; Z90.89 Acquired absence of other organs; Z90.49 Acquired absence of other specified parts of digestive tract; F17.200 Nicotine dependence, unspecified, uncomplicated
CPT/HCPCS: 36415; 80048; 80299; 80307; 80320; 82040; 85025; 99284; J0572; Q0162; 80329; G0480

== ENCOUNTER 2021-01-12 10:30 | Emergency (ER) | payer MEDICAID ==
[~2021-01-12] VITALS: Ht 182.9 cm; Wt 64.5 kg
[2021-01-12 10:34] VITALS: BP 164/91
--- NOTE | 2021-01-12 10:58 | NUR ---
PT BROUGHT INTO TRIAGE 2 BY SECURITY. PT WAS AT [employer] TRYING TO GET FOOD. PT ADVISED THAT PTS ARE UNABLE TO PURCHASE FOOD.SECURITY WITNESSSES PT BLEEDING ALL OVER FLOORS. PT REDIRECTED BACK INTO ER LOBBY AND INTO TRIAGE 2. THIS RN REMOVES BLOOD SOAKED BANDAGE AND REAPPLIES GUAZE WITH COBAN DRESSING. BLEEDING APPEARS TO BE CONTROLLED AT THIS TIME. PT EDUCATED TO KEEP EXTREMITY ELEVATED AND HAS TO BE CONTINOUSLY REMINDED TO DO SO. PT AMBULATED TO ROOM 6 FROM TRIAGE.
--- NOTE | 2021-01-12 11:07 | NUR ---
PT UP IN ROOM WALKING AROUND. PT REPORTS FEELING DIZZY AND LIKE HE IS GOING TO PASS OUT. PT INSTRUCTED TO LAYDOWN ON THE GURNEY. PT REFUSING STATING HE FEELS BETTER WALKING AROUND. PT CONTINUES TO PACE AROUND ROOM DESPITE EDUCATION.
--- NOTE | 2021-01-12 11:32 | NUR ---
PT SITTING ON GURNEY "SEWING ROPE FOR A WHIP".
[2021-01-12] MEDS ORDERED: LIDOCAINE-MPF 1%, 5ML ONE (12:06)
--- NOTE | 2021-01-12 12:12 | NUR ---
ESTRELLITA AT BEDSIDE FOR LOCAL ANESTHETIC APPLICATION.
--- NOTE | 2021-01-12 12:30 | NUR ---
PT DECLINES TDAP.
[2021-01-12] MEDS ORDERED: NEOSPORIN OINT. PKT 1 PACKET ONE (12:49)
[2021-01-12] MEDS ORDERED: DIPH,PERTUSS(ACELL),TET VAC/PF 0.5 ML IM-VACC ONE (13:00)
[2021-01-12] MEDS ORDERED: LIDOCAINE-MPF 1%, 5ML INFIL ONE (13:00)
--- NOTE | 2021-01-12 13:05 | NUR ---
Patient given discharge instructions and they have confirmed that they understand the instructions. Patient ambulatory with steady gait. Provided w/ finger splint.
== END 2021-01-12 13:08 | disposition home or self-care (01) ==
LOC: ED 11:38
DX: S61.221A Laceration with foreign body of left index finger without damage to nail, initial encounter (principal); I10 Essential (primary) hypertension; Z90.89 Acquired absence of other organs; Z90.49 Acquired absence of other specified parts of digestive tract; F17.210 Nicotine dependence, cigarettes, uncomplicated; X58.XXXA Exposure to other specified factors, initial encounter; Y93.89 Activity, other specified; Y92.410 Unspecified street and highway as the place of occurrence of the external cause; Y99.8 Other external cause status
CPT/HCPCS: 12001; 99282